=== PATIENT | female | born 1965 | race Caucasian/White ===

== ENCOUNTER → 2019-03-28 | Outpatient (CLI) | payer OTHER ==
[~2019-03-28] MED LIST: BENICAR HCT 401 EAC1 PO; LIPITOR40 MG PO; PAROXETINE HCL20 MG PO; PAXIL 20 MG TAB20 M1 PO; UNITHROID175 MCG PO; ZPAK PO
== END ==
LOC: RAD 08:18
DX: Z12.31 Encounter for screening mammogram for malignant neoplasm of breast (principal)

== ENCOUNTER → 2021-05-16 | Outpatient (CLI) | payer OTHER | LOC: RAD 08:50 | PROVIDERS: ATTEND Neuromusculoskeletal Medicine & OMM | DX: Z12.31 Encounter for screening mammogram for malignant neoplasm of breast (principal) ==